=== PATIENT | female | born 1960 | race Caucasian/White ===

== ENCOUNTER → 2019-07-16 13:42 | Outpatient (CLI) | payer OTHER, MEDICAID, SELFPAY ==
--- NOTE | 2019-07-16 | DI.MRI.S_ITS ---
PROCEDURE: MR LUMBAR SPINE WO CON INDICATIONS: Radiculopathy, lumbosacral region TECHNIQUE: Noncontrast sagittal T1 spin echo and T2 fast echo, sagittal STIR, axial T1 and T2 fast spin echo through the lumbar spine. In cases with scoliosis, additional coronal T2 fast spin echo may be performed. COMPARISON: None. FINDINGS: Image quality: Excellent. Alignment and Curvature: No plain films are available for comparison, for numbering purposes. Thus, for the purposes of this examination, 5 lumbar type vertebral bodies will be presumed, as denoted on the montage panel. This should be confirmed and correlated with plain films, prior to any lumbar spinal intervention. There is mild grade 1 retrolisthesis of L1 on L2, L2 on L3, L3 on L4, and L5 on S1. Bone Marrow: Marrow is of normal overall signal. No acute vertebral body compression fractures. Minimal reactive signal within the endplates adjacent to the L1-L2, L3-L4, L4-L5, and L5-S1 intervertebral discs. Spinal Cord: Conus medullaris terminates at the mid L2 level. Visualized cord demonstrates normal signal and size. There is a small lipoma of the filum terminalis which does not significantly contribute to canal stenosis. Paraspinous Soft Tissues: No paravertebral masses. L1-L2: Mild disc desiccation. Mild diffuse disc bulge. Mild facet and ligamentum flavum hypertrophy. Mild canal stenosis. No foraminal stenosis. L2-L3: Mild disc desiccation. Mild diffuse disc bulge. Mild facet and ligament flavum hypertrophy. Mild epidural lipomatosis. Mild canal stenosis. No foraminal stenosis. L3-L4: Moderate disc height loss and desiccation. Mild diffuse disc bulge. Mild facet and ligamentum flavum hypertrophy. Mild epidural lipomatosis. Mild canal stenosis. Mild bilateral foraminal stenosis. L4-L5: Moderate disc height loss and desiccation. Mild diffuse disc bulge with small superimposed broad based right far lateral protrusion. Mild facet and ligamentum flavum hypertrophy. Mild canal stenosis. Mild right greater than left foraminal stenosis. L5-S1: Moderate disc height loss and desiccation. Mild diffuse disc bulge with small superimposed broad based left far lateral protrusion. Mild facet hypertrophy bilaterally. No significant canal stenosis. Mild left foraminal stenosis. No right foraminal stenosis. IMPRESSION: 1. 5 lumbar type vertebral bodies were presumed for the current report. Plain films of the lumbar spine are recommended for confirmation, prior to any lumbar spinal intervention. 2. Multilevel degenerative disc and facet disease, as well as ligamentum flavum hypertrophy and epidural lipomatosis. 3. Mild multilevel canal and foraminal stenoses. No neural impingement. Dictated by: Mike Benavidez M.D. on 07/16/2019 at 15:25 Approved by: Mike Benavidez M.D. on 07/16/2019 at 15:28
== END ==
PROVIDERS: PCP Family Medicine; Visit Provider Family Medicine
DX: M51.16 Intervertebral disc disorders with radiculopathy, lumbar region (principal); M51.17 Intervertebral disc disorders with radiculopathy, lumbosacral region; M48.061 Spinal stenosis, lumbar region without neurogenic claudication; M48.07 Spinal stenosis, lumbosacral region; E88.2 Lipomatosis, not elsewhere classified
CPT/HCPCS: 72148

== ENCOUNTER → 2021-02-07 13:43 | Outpatient (CLI) | payer OTHER, MEDICAID, SELFPAY ==
[2021-02-07 20:27] LABS: COVID19 - ORCAS (NP or Nasal) Negative (Negative)
== END ==
PROVIDERS: PCP Family Medicine; Visit Provider Family Medicine
DX: U07.1 COVID-19 (principal)
CPT/HCPCS: U0003

== ENCOUNTER → 2021-03-21 16:59 | Outpatient (CLI) | payer OTHER, MEDICAID, SELFPAY ==
[2021-03-22 22:06] LABS: COVID19 - ORCAS (NP or Nasal) Negative (Negative)
== END ==
PROVIDERS: PCP Family Medicine; Visit Provider Family Medicine
DX: Z20.822 Contact with and (suspected) exposure to COVID-19 (principal)
CPT/HCPCS: U0003

== ENCOUNTER → 2021-11-28 11:12 | Outpatient (CLI) | payer OTHER, MEDICAID, SELFPAY ==
[2021-11-28 20:37] LABS: COVID19 - ORCAS (NP or Nasal) Negative (Negative)
== END ==
PROVIDERS: PCP Family Medicine; Visit Provider Physician Assistant
DX: Z20.822 Contact with and (suspected) exposure to COVID-19 (principal)
CPT/HCPCS: U0003

== ENCOUNTER → 2025-05-19 13:03 | Outpatient (CLI) | payer OTHER, SELFPAY ==
[2025-05-19 19:29] LABS: Hematocrit 39.0 % (36-46); Hemoglobin 13.2 g/dL (12.0-16.0); Mean Corpuscular HGB Conc 34.0 % (30-36); Mean Corpuscular Hemoglobin 31.1 PG (26-34); Mean Corpuscular Volume 91.4 fL (80-100); Platelet Count 180 X10^3/uL (150-400)
[2025-05-19 19:41] LABS: HEMOLYSIS 23 (0-50); Iron 140 ug/dL (37-170)
[2025-05-19 19:46] LABS: Alanine Aminotransferase 18 IU/L (<35); Albumin 4.6 g/dL (3.5-5.0); Albumin Globulin Ratio 1.7 (1.0-2.8); Alkaline Phosphatase 81 U/L (38-126); Blood Urea Nitrogen 21 mg/dL (7-17); Calcium 9.5 mg/dL (8.4-10.2); Carbon Dioxide 27 mmol/L (22-32); Chloride 100 mmol/L (98-107); Cholesterol 204 mg/dL (140-199); Globulin 2.7 g/dL (1.7-4.1); Glucose 94 mg/dL (70-99); HDL Cholesterol 99 mg/dL (40-60); HEMOLYSIS 17 (0-50); Potassium 4.3 mmol/L (3.4-5.1); Sodium 135 mmol/L (137-145); Total Protein 7.3 g/dL (6.3-8.2); Triglycerides 69 mg/dL (35-150)
[2025-05-19 19:54] LABS: Percent Iron Saturation 54 % (15-50); Total Iron Binding Capacity 258 ug/dL (265-497); Transferrin 212 mg/dL (206-381)
[2025-05-19 20:19] LABS: Thyroid Stimulating Hormone 2.60 uIU/mL (0.47-4.68)
[2025-05-19 20:20] LABS: Vitamin D 25 Hydroxy (D3) 56.9 ng/mL (30.0-100.0)
[2025-05-19 20:23] LABS: Ferritin 79 ng/mL (11-264)
[2025-05-19 20:39] LABS: Vitamin B12 931 pg/mL (239-931)
[2025-05-19 22:10] LABS: Estimated Glomerular Filt Rate 41 mL/min (>60)
== END ==
PROVIDERS: PCP Family Medicine; Visit Provider Family Medicine
DX: R00.2 Palpitations (principal); E53.8 Deficiency of other specified B group vitamins; Z86.2 Personal history of diseases of the blood and blood-forming organs and certain disorders involving the immune mechanism; K21.9 Gastro-esophageal reflux disease without esophagitis; Z13.6 Encounter for screening for cardiovascular disorders; Z13.1 Encounter for screening for diabetes mellitus
CPT/HCPCS: 80053; 80061; 82306; 82607; 82728; 83540; 83550; 84443; 85027